=== PATIENT | male | born 2000 | race American Indian/Alaskan Native ===

== ENCOUNTER 2022-01-01 13:08 | Emergency (ER) | payer OTHER ==
[2022-01-01 13:31] VITALS: BP 129/77
--- NOTE | 2022-01-01 16:35 | Emergency Department Report ---
ED General Adult HPI - General Chief complaint: Earache Stated complaint: EAR PAIN Time Seen by Provider: 01/01/22 16:13 Source: patient Mode of arrival: Ambulatory Limitations: No Limitations - History of Present Illness Initial comments: 21-year-old male no significant past medical history reports to the ER with 1 day of right earache. Patient reports no fever, no cough cold congestion. No recent swimming noted. No other acute signs and symptoms reported by patient. Denies hearing loss. Severity scale (0 -10): 5 ED Review of Systems ROS: Stated complaint: EAR PAIN Other details as noted in HPI Comment: All other systems reviewed and negative ENT: ear pain (Right) ED Past Medical Hx - Past Medical History Previous Medical History?: No - Surgical History Past Surgical History?: No ED Physical Exam - General Limitations: No Limitations General appearance: alert, in no apparent distress - Head Head exam: Present: atraumatic, normocephalic - Eye Eye exam: Present: normal appearance - ENT ENT exam: Present: mucous membranes moist, TM's normal bilaterally, normal external ear exam - Neck Neck exam: Present: normal inspection - Respiratory Respiratory exam: Present: normal lung sounds bilaterally. Absent: respiratory distress - Cardiovascular Cardiovascular Exam: Present: regular rate, normal rhythm. Absent: systolic murmur, diastolic murmur, rubs, gallop - GI/Abdominal GI/Abdominal exam: Present: soft, normal bowel sounds - Rectal Rectal exam: Present: deferred - Extremities Exam Extremities exam: Present: normal inspection - Back Exam Back exam: Present: normal inspection - Neurological Exam Neurological exam: Present: alert, oriented X3 - Psychiatric Psychiatric exam: Present: normal affect, normal mood - Skin Skin exam: Present: warm, dry, intact, normal color. Absent: rash ED Course Vital Signs 01/01/22 13:30 Temperature 98.4 F Pulse Rate 60 Respiratory 20 Rate Blood Pressure 129/77 [Right] O2 Sat by Pulse 100 Oximetry ED Medical Decision Making - Medical Decision Making 21-year-old male right ear pain 1 day. No fever no cough cold congestion no hearing loss or altered hearing. Pain is about 4 out of 5. On physical exam TM is intact bilaterally. No drainage noted. Ear canal with no acute process noted in right ear. No external tenderness noted in right ear. No imaging or blood work is needed. Patient informed to take [id number] medication for pain control. Patient informed no acute infection is noted. Patient stable for discharge home. Patient informed to follow-up with primary care provider. Vital Signs 01/01/22 13:30 Temperature 98.4 F Pulse Rate 60 Respiratory 20 Rate Blood Pressure 129/77 [Right] O2 Sat by Pulse 100 Oximetry Critical care attestation.: If time is entered above; I have spent that time in minutes in the direct care of this critically ill patient, excluding procedure time. ED Disposition Clinical Impression: Earache, right Disposition: 01 HOME / SELF CARE / HOMELESS Is pt being admited?: No Condition: Stable Instructions: Earache, Adult
== END 2022-01-01 16:39 | disposition home or self-care (01) ==
LOC: ED 13:08
DX: H92.01 Otalgia, right ear (principal)
CPT/HCPCS: 99282